=== PATIENT | female | born 1955 | race Caucasian/White ===

== ENCOUNTER 2022-08-16 09:04 | Emergency (ER) | payer MEDICARE, OTHER ==
[2022-08-16 09:53] LABS: ANION GAP 12.8 mmol/L (5-15)
== END 2022-08-16 10:25 | disposition home or self-care (01) ==
LOC: KA.ED 09:04
DX: M17.11 Unilateral primary osteoarthritis, right knee (principal); I12.9 Hypertensive chronic kidney disease with stage 1 through stage 4 chronic kidney disease, or unspecified chronic kidney disease; N18.9 Chronic kidney disease, unspecified; Z88.1 Allergy status to other antibiotic agents; Z79.899 Other long term (current) drug therapy
CPT/HCPCS: 36415; 80048; 85379; 99283

== ENCOUNTER 2023-12-22 08:35 | Day surgery (SDC) | payer MEDICARE, OTHER ==
[~2023-12-22 08:35] MED LIST: Sodium Chloride 0.9% 10 ML Syringe FLUSH PRN
[2023-12-22] MEDS ORDERED: Propofol 200 MG/20 ML SDV IV ONE (08:36)
[2023-12-22] MEDS ORDERED: Midazolam 1 MG/ML 2 ML SDV ONE (08:51)
[2023-12-22] MEDS ORDERED: Propofol 200 MG/20 ML SDV ONE ×3 (08:51→10:13)
[2023-12-22] MEDS: Lactated Ringers 1,000 ML IV SCH (08:53)
[2023-12-22] MEDS ORDERED: Lactated Ringers 1,000 ML ONE (10:14)
== END 2023-12-22 12:08 | disposition home or self-care (01) ==
LOC: KA.SDS 08:35
PROVIDERS: ATTEND Family Medicine
DX: K57.30 Diverticulosis of large intestine without perforation or abscess without bleeding (principal); K64.8 Other hemorrhoids; K52.9 Noninfective gastroenteritis and colitis, unspecified; E78.2 Mixed hyperlipidemia; F33.42 Major depressive disorder, recurrent, in full remission; I12.9 Hypertensive chronic kidney disease with stage 1 through stage 4 chronic kidney disease, or unspecified chronic kidney disease; N18.31 Chronic kidney disease, stage 3a; G47.00 Insomnia, unspecified; D50.9 Iron deficiency anemia, unspecified; E87.6 Hypokalemia; M25.50 Pain in unspecified joint; Z79.899 Other long term (current) drug therapy; Z88.8 Allergy status to other drugs, medicaments and biological substances; Z96.642 Presence of left artificial hip joint; Z96.651 Presence of right artificial knee joint
CPT/HCPCS: 45378; J2250; J2704; J7120; J3490